=== PATIENT | female | born 1965 | race Caucasian/White ===

== ENCOUNTER 2023-07-30 12:02 | Outpatient (AMB) | payer OTHER, SELFPAY ==
--- NOTE | 2023-07-30 12:08 | A.OFFPC_ITS ---
Vital Signs 07/30/23 12:09 Height 5 ft Weight 171 lb 6 oz BMI 33.5 BP 124/68 Blood Pressure Location Rt brachial Position Sitting Respiration 14 Pulse 92 Pulse Source Pulse Oximeter Temp 97.5 F Temp Source Temporal Artery Scan Pulse Oximetry (%) 97 Oxygen Delivery Method Room Air Intake Visit Reasons: ANNUAL PHYSICAL Nurse Licensed Practical Required: No Accompanied by: Self / Same As Patient Allergies No Known Allergies Allergy (Verified 07/30/23 12:29) Medication List - Last Reconciled 07/30/23 by TASH Gomez No Known Home Meds Tobacco use date assessed: 07/30/23 Dental Screening Dental Screen Date: 07/30/23 Did you have a dental visit in the last 12 months?: No Did you have a dental problem in the last 6 months where you did not have access to dental care?: No Was dental information given to patient?: Patient has dentist HPI HPI Comments History of Present Illness Details 58-year-old female with generalized anxi ety disorder, MDD, obesity, current everyday tobacco user, mild intermittent asthma , PVD, varicose veins Specialists Podiatry Health maintenance Colonoscopy reports UTD Mammogram reports UTD Pap smear reports up-to-date DEXA reports up-to-date Vaccines - reports UTD done at [facility] Here today for CPE , very limited records available to me today. MDD/STEFFANY + sx. Not active in counseling. Has had lots of life circumstances. Interested in counseling. Would like medications to help. Has never been on meds. Mild intermittent asthma - needs inhaler, using DELILAH in the past with + effect. [facility] Medical History (Updated 07/30/23 @ 15:24 by TASH Gomez) Obesity Dermatitis due to allergic reaction to food Mixed anxiety and depressive disorder Right sciatic nerve pain Bone spur of foot Bursitis of both hips No pertinent past medical history Surgical History No pertinent past surgical history Family History Mother Diabetes Father Emphysema/COPD Diabetes Social History Household Members: None Both parents involved: No Caregiver staying overnight: No Housing: House Are you a primary respiratory care technician to a significant other at home: No Do you presently have visiting nurse or other home services: No 75 years or older and lives alone: No Alcohol intake: current Alcohol intake frequency: holidays/special occasions only Patient Tobacco Use Status: Current everyday Tobacco user Tobacco use type: Cigarette Cigarette Packs Per Day: 0.20 Cigarettes Per Day: 5 Years Smoked: 20 e-Cigarette/Vaping Use: Former Use Second Hand Smoke Exposure: Yes service: No Current occupational status: employed Current occupation: [employer] Cognitive needs: No Hearing needs: No Vision needs: No Questionnaire PHQ-9 Over the last 2 weeks, how often have you been bothered by any of the following problems? 1. Little interest or pleasure in doing things: more than half the days 2. Feeling down, depressed, or hopeless: more than half the days 3. Trouble falling or staying asleep, or sleeping too much: more than half the days 4. Feeling tired or having little energy: more than half the days 5. Poor appetite or overeating: more than half the days 6. Feeling bad about yourself - or that you are a failure or have let yourself or your family down: more than half the days 7. Trouble concentrating on things, such as reading the newspaper or watching television: more than half the days 8. Moving or speaking so slowly that other people could have noticed. Or the opposite - being so fidgety or restless that you have been moving around a lot more than usual: more than half the days 9. Thoughts that you would be better off or of hurting yourself in some way: more than half the days Total score: 18 Depression Screening Interpretation: Positive Depression Screening Follow-up: Existing condition, New Medication prescribed and Community Mental Health Worker F/U Depression Screening Done: Yes 36728 - PHQ-9 Billing: Yes Source: Developed by Drs. Gustavo Fischer, Gretel Salas, Solo Hurtado and colleagues, with an educational rob from [employer]. Thrive Questionnaire Date Thrive assessed: 07/30/23 I am a: Patient What is your living situation today?: I have a place to live, but I am worried about losing it in the future Within the past 12 months, did the food you bought not last and you didn't have the money to get more?: Never true Within the past 12 months, did you worry whether your food would run out before you got money to buy more?: Never true Do you have trouble paying for medicines?: No Do you have trouble getting transportation to medical appointments?: No Do you have trouble paying your heating and electricity bill?: No Do you have trouble taking care of your child, family member or friend?: No Do you have trouble with day-to-day activities such as bathing, preparing meals, shopping, managing finances, etc.?: Yes Are you currently unemployed and looking for a job?: No Are you interested in more education?: No Please select the resources that you would like help with: Housing/Group Home and Daily support Currently or been in a relationship where the following occur: no concerns reported THRIVE Score: 1 AUDIT C Alcohol Use Questionnaire (AUDIT-C) 1. How often do you have a drink containing alcohol?: Monthly or less 2. How many drinks containing alcohol do you have on a typical day when you are drinking?: 1 or 2 3. How often do you have six or more drinks on one occasion?: Never Total Score: 1 Score Reviewed/Action Taken: Yes STEFFANY-7 AMB Questionnaire STEFFANY-7 Date STEFFANY - 7 assessed: 07/30/23 Feeling nervous, anxious, or on edge: 2 = More than half the days Not being able to stop or control worryin = More than half the days Worrying too much about different things: 2 = More than half the days Trouble relaxin = Several days Being so restless that it is hard to sit still: 0 = Not at all Becoming easily annoyed or irritable: 1 = Several days Feeling afraid as if something awful might happen: 2 = More than half the days Total STEFFANY-7 score (0-4 normal; 5-9 mild; 10-14 moderate; 15-21 severe): 10 Source: Developed by Drs. Gustavo Fischer, Gretel Salas, Solo Hurtado and colleagues, with an educational rob from [employer] STEFFANY-7 Assessment Billing STEFFANY-7 Assessment Tool: STEFFANY-7 Assessment 30025 ACT Questionnaire In the past 4 weeks, how much of the time did your asthma keep you from getting as much done at work, school or at home?: None of the time During the past 4 weeks, how often have you had shortness of breath?: 1-2 times a week During the past 4 weeks, how often did your asthma symptoms wake you up at night or earlier than usual in the morning?: Not at all During the past 4 weeks, how often have you had to use your rescue inhaler or nebulizer medication?: 2-3 times a week How would you rate your asthma control during the past 4 weeks?: Well controlled ACT Interpretation: Negative Score: 21 Review of Systems Const Details: Constitutional: Denies fever. Skin: Denies rash. Eye: Denies eye pain. ENMT: Denies sore throat and nasal congestion. Respiratory: Denies shortness of breath and cough. Gastrointestinal: Denies nausea, vomiting or abdominal pain. Cardiovascular: Denies chest pain and syncope. Genitourinary: Denies dysuria. Musculoskeletal: Denies back pain and extremity pain. Neurologic: Denies headaches, confusion, and weakness. Psychiatric: Denies suicidal thoughts and substance abuse. Allergy/ Immunologic: Denies impaired immunity. Physical exam (Primary Care) Vital Signs: Last Vital Signs Temp 97.5 F 07/30/23 12:09 Pulse 92 07/30/23 12:09 Resp 14 07/30/23 12:09 BP 124/68 07/30/23 12:09 Pulse Ox 97 07/30/23 12:09 Oxygen Delivery Method Room Air 07/30/23 12:09 BMI result Body Mass Index 33.5 BMI Assessment/Plan discussion: High BMI High, discussed plan: lifestyle Tobacco/Smoking Status: Tobacco use Status Tobacco use date assessed 07/30/23 07/30/23 12:19 Patient Tobacco Use Status Current everyday Tobacco 07/30/23 12:19 Tobacco use type Cigarette 07/30/23 12:19 e-Cigarette/Vaping Use Former Use 07/30/23 12:19 Are you ready to quit: No Tobacco cessation counseling provided: Yes Items discussed: Other Relapse Prevention: discussed the importance of a supportive environment, discussed extending NRT, discussed negative mood or depression after quitting, weight gain after smoking is common and discussed dietary, exercise and/or lifestyle changes Number of minutes spent counselin CPT code: 77413 - 4-10 Minutes PHQ-9: PHQ-9 Score PHQ-9: Total score 18 07/30/23 12:26 Depression Screening Interpretation: Positive Depression Screening Follow-up: Existing condition, New Medication prescribed and Community Mental Health Worker F/U Thrive Assessment: Date of Thrive Assessment Date Thrive assessed 07/30/23 07/30/23 12:19 Currently or been in a relationship where the following occur: no concerns reported Advance Care Planning discussion: Exists, not on file Date of discussion: 07/30/23 Who was present: Self Forms completed: Health Care Proxy and MOLST Time spent: 1-15 minutes, not on file Actual minutes spent: 2 Const Other: General: Well developed, well nourished, in no acute distress. Appears stated age. Head: Normocephalic, atraumatic. Eyes: Pupils are equal, round and reactive to light and accommodation. Conjunctivae are clear. Vision grossly normal. Ears: TMs clear AU, EACS WNL Nose: Patent, without discharge. Mouth: There are no ulcers or lesions noted. No inflammation, no post nasal drip, no plaques nor exudates. Neck: Supple, no adenopathy or thyromegaly. Lungs: Inspiratory expiratory wheezes throughout Heart: Regular rate and rhythm. No murmurs, click, rubs or gallops are noted. Abdomen: Bowel sounds present in all quadrants. The abdomen is soft, nontender, with no masses or organomegaly noted. No hernias are noted. Musculoskeletal: Joints are nontender, without swelling, redness, or effusions. Range of motion is observed to be normal. Pulses: Peripheral pulses are equal and palpable bilaterally. Extremities: Hairless, skin intact, varicose veins bilateral lower extremities Neurologic: Gait and station normal. Cranial Nerves 2-12 intact. Motor strength grossly symmetrical and intact. No sensory loss. Balance normal. Skin: No rashes, ulcers, or lesions noted. Turgor is good. Skin color is good. Hair and nails are without abnormalities. Psych: Crying during exam when talking about her past. Future oriented. Conversant and cooperative, pleasant Assessment and Plan Assessment & Plan (1) Encounter for general adult medical examination with abnormal findings: Code(s): Z00.01 - Encounter for general adult medical examination with abnormal findings (2) MDD (major depressive disorder), recurrent episode: Comment: Start on Paxil 20 mg daily. Refer to counseling. Code(s): F33.9 - Major depressive disorder, recurrent, unspecified Qualifiers: Major depression episode severity: moderate Qualified Code(s): F33.1 - Major depressive disorder, recurrent, moderate (3) STEFFANY (generalized anxiety disorder): Comment: See MDD care plan Code(s): F41.1 - Generalized anxiety disorder (4) BMI 33.0-33.9,adult: Comment: Lifestyle modifications encouraged. Code(s): Z68.33 - Body mass index [BMI] 33.0-33.9, adult (5) Mild intermittent asthma in adult without complication: Comment: Start p.r.n. Delilah use. Code(s): J45.20 - Mild intermittent asthma, uncomplicated (6) PTSD (post-traumatic stress disorder): Comment: See MDD care plan Code(s): F43.10 - Post-traumatic stress disorder, unspecified (7) Varicose veins of both lower extremities: Comment: Skin intact. Follow up by vascular in the past. Reports that she had had the vein treatment on bilateral lower extremities and they have returned. At this time she has not complaining of any pain. Symptomatic care only at this time. Code(s): I83.93 - Asymptomatic varicose veins of bilateral lower extremities Qualifiers: Varicose vein complication: asymptomatic Qualified Code(s): I83.93 - As ymptomatic varicose veins of bilateral lower extremities (8) PVD (peripheral vascular disease): Comment: Based on physical exam. Not currently on a statin or aspirin. BP controlled without medications. Or review labs with her and discuss starting a statin if appropriate at next office visit. Smoking cessation also encouraged. Code(s): I73.9 - Peripheral vascular disease, unspecified (9) Tobacco dependence with current use: Comment: Cessation encouraged. Not ready to quit. Code(s): F17.200 - Nicotine dependence, unspecified, uncomplicated Plan This note is constructed using voice recognition software. While every effort has been made to ensure accuracy in plastic installer, still errors may have been included Sometimes, these errors may affect the content or meaning of the given sentence . An additional 20 minutes was spent dealing with abnormal findings on physical exam today in addition to the time needed for the wellness exam. This includes time before, after and patient facing. Orders: Orders LDL Cholesterol Direct Today Z00.01 - Encounter for general adult medical examination with abnormal findings Vitamin D 1,25 dihydroxy Today Z00.01 - Encounter for general adult medical examination with abnormal findings TSH reflex Free T4 Today Z00.01 - Encounter for general adult medical examination with abnormal findings Comprehensive Met. Panel Today Z00.01 - Encounter for general adult medical examination with abnormal findings Hemoglobin A1c Today Z00.01 - Encounter for general adult medical examination with abnormal findings Microalbumin, Random (w Creat) Today Z00.01 - Encounter for general adult medical examination with abnormal findings Referrals Nurse Navigator Referral Z13.9 - Encounter for screening, unspecified Counseling Referral F33.9 - Major depressive disorder, recurrent, unspecified, F41.1 - Generalized anxiety disorder Medications: New paroxetine HCl take 1/2 tab daily for 2 weeks then 1 tab daily 20 mg PO DAILY 30 tabs 1RF albuterol sulfate 90 mcg/actuation 2 puffs inhalation Q4-6H PRN 8.5 grams 0RF shortness of breath or wheezing 30 days Patient Instructions: Return to office in 6 weeks to follow up on Paxil as well as albuterol use and discuss your labs. Sooner as needed. Smoking Cessation How to Quit There are a lot of ways to quit smoking and many resources to help you. Family members, friends, and co-workers may be supportive or encouraging, but to be successful the desire and commitment to quit must be your own. Most people who have been able to successfully quit smoking made at least one unsuccessful attempt in the past. Try not to view past attempts to quit as failures, but rather as learning experiences. Stopping smoking or using smokeless tobacco is difficult, but anyone can do it. Know the symptoms to expect when you stop. Common symptoms include: ? An intense craving for nicotine ? Anxiety, tension, restlessness, frustration, or impatience ? Difficulty concentrating ? Drowsiness or trouble sleeping, as well as bad dreams and nightmares ? Drowsiness and trouble sleeping ? Headaches ? Increased appetite and weight gain ? Irritability or depression How severe your symptoms are depends on how long you smoked and how many cigarettes you smoked each day. Feel ready to quit? ? First and foremost, set a quit date and quit completely on that day. Before your quit date, you may begin reducing your cigarette use. But remember, there is no safe level of cigarette smoking. ? List the reasons why you want to quit. Include both short- and long-term benefits. ? Identify the times you are most likely to smoke. For example, do you tend to smoke when feeling stressed or down? When out at night with friends? While drinking coffee or alcohol? When bored? While driving? Right after a meal or sex? During a work break? While watching TV or playing cards? When you are with other smokers? ? Let all of your friends, family, and co-workers know of your plan to stop smoking and your quit date. Just being aware that they know what you're going through can be helpful, especially when you are grumpy. ? Get rid of all your cigarettes just before the quit date, and clean out anything that smells like smoke, such as clothes and furniture. Make a plan about what you will do instead of smoking at those times when you are most likely to smoke. ? Be as specific as possible. For example, drink tea instead of coffee -- tea may not trigger the desire for a cigarette. Or, take a walk when you feel stressed. ? Remove ashtrays and cigarettes from the car. Place pretzels or hard candies there instead. Pretend-smoke with a straw. ? Find activities that focus your hands and mind but are not taxing or fattening. Computer games, solitaire, knitting, sewing, and crossword puzzles may help. ? If you normally smoke after eating, find other ways to end a meal. Play a tape or CD, eat a piece of fruit, get up and make a phone call, or take a walk (a good distraction that also jaffe calories). Make other changes in your lifestyle. ? Change your daily schedule and habits. Eat at different times or eat several small meals instead of three large ones. Sit in a different chair or even a different room. ? Satisfy your oral habits by eating celery or other low-calorie snack, chewing sugarless gum, or sucking on a cinnamon stick. ? Go to public places and restaurants where smoking is prohibited or restricted. ? Eat regular meals and don't eat too much candy or sweet things. ? Get more exercise. Take walks or ride a bike. Exercise helps relieve the urge to smoke. Set short-term quitting goals and reward yourself when you meet them. ? Every day, put the money you normally spend on cigarettes in a jar. Then buy something pleasurable after a period of time. ? Try not to think about all the days ahead you will need to avoid smoking. Take it one day at a time. ? Even one puff or one cigarette will make your desire for more cigarettes even stronger. However, it is normal to make mistakes. So even if you have one cigarette, you don't need to take the next one. Other tips to help you quit smoking and stick to it: ? Enroll in a smoking cessation program (hospitals, health departments, community centers, and work sites often offer programs). Learn about self-hypnosis or other techniques. ? Ask your health care provider about prescription medications that are safe and appropriate for you. ? Find out about nicotine patches, gum, and sprays. The [place] [employer]'s web site -- www.cancer.org -- is an excellent resource for smokers who are trying to quit, and the [employer] [place] [employer] can help some smokers kick the habit. Above all, don't get discouraged if you aren't able to quit smoking the first time. Nicotine addiction is a hard habit to break. Try something different next time. Develop new strategies, and try again. Many people take several attempts to finally kick the habit. Health screenings for women You should visit your health care provider from time to time, even if you are healthy. The purpose of these visits is to: Screen for medical issues Assess your risk for future medical problems Encourage a healthy lifestyle Update vaccinations and other preventive care services Help you get to know your provider in case of an illness Information Even if you feel fine, you should still see your provider for regular checkups. These visits can help you avoid problems in the future. For example, the only way to find out if you have high blood pressure is to have it checked regularly. High blood sugar and high cholesterol levels also may not have any symptoms in the early stages. A simple blood test can check for these conditions. There are specific times when you should see your provider or receive specific health screenings. The [place] Preventive Services Task Force publishes a list of recommended screenings. Below are screening guidelines for women ages 18 to 39. BLOOD PRESSURE SCREENING Your blood pressure should be checked at least once every 3 to 5 years if: Your blood pressure is in the normal range (top number less than 120 mm Hg and bottom number less than 80 mm Hg) You don't have risk factors for high blood pressure Ask your provider if you need your blood pressure checked more often if: The top number is 120 to 129 mm Hg or the bottom number is 70 to 79 mm Hg You have diabetes, heart disease, kidney problems, are overweight, or have certain other health conditions You have a first-degree relative with high blood pressure You are Black You had high blood pressure during a If the top number is 130 mm Hg or greater or the bottom number is 80 mm Hg or greater, this is considered stage 1 hypertension. Schedule an appointment with your provider to learn how you can reduce your blood pressure. Watch for blood pressure screenings in your area. Ask your provider if you can stop in to have your blood pressure checked. BREAST CANCER SCREENING Experts do not agree about the benefits of breast self-exams in finding breast cancer or saving lives. Talk to your provider about what is best for you. A screening mammogram is not recommended for most women under age 40. Your provider may discuss and recommend mammograms, MRI scans, or ultrasounds if you have an increased risk for breast cancer, such as: A mother or sister who had breast cancer at a young age (most often starting screening earlier than the age the close relative was diagnosed) You carry a high-risk genetic marker CERVICAL CANCER SCREENING Cervical cancer screening should start at age 21 years unless your provider advises otherwise. After the first test: Women ages 21 through 29 should have a Pap test every 3 years. Exoprts do not agree on whether HPV testing is recommended for this age group. Women ages 30 through 65 should be screened with either a Pap test every 3 years or the HPV test every 5 years or both tests every 5 years (called cotesting ). Women who have been treated for precancer (cervical dysplasia) should continue to have Pap tests for 20 years after treatment or until age 65, whichever is longer. If you have had your uterus and cervix removed (total hysterectomy), and you have not been diagnosed with cervical cancer or precancer (high grade cervical neoplasia), you do not need cervical cancer screening. CHOLESTEROL SCREENING Cholesterol screening should begin at: Age 45 for women with no known risk factors for coronary heart disease Age 20 for women with known risk factors for coronary heart disease Repeat cholesterol screening should take place: Every 5 years for women with normal cholesterol levels More often if changes occur in lifestyle (including weight gain and diet) More often if you have diabetes, heart disease, kidney problems, or certain other conditions DIABETES SCREENING You should be screened for diabetes starting at age 35 and then repeated every 3 years if you have no risk factors for diabetes. Screening may need to start earlier and be repeated more often if you have other risk factors for diabetes, such as: You have a first degree relative with diabetes. You are overweight or have obesity. You have high blood pressure, prediabetes, or a history of heart disease. Screening for diabetes should be done if you are planning to become and you are overweight and have other risk factors such as high blood pressure. DENTAL EXAM Go to the dentist once or twice every year for an exam and cleaning. Your dentist will evaluate if you need more frequent visits. EYE EXAM Have an eye exam every 5 to 10 years before age 40. If you have vision problems, have an eye exam every 2 years or more often if recommended by your provider. You should have an eye exam that includes an examination of your retina (back of your eye) at least every year if you have diabetes. IMMUNIZATIONS Commonly needed vaccines include: Flu shot: get one every year. COVID-19 vaccine: ask your provider what is best for you. Tetanus-diphtheria and acellular pertussis (Tdap) vaccine: have one at or after age 19 as one of your tetanus-diphtheria vaccines if you did not receive it as an adolescent. Tetanus-diphtheria: have a booster (or Tdap) every 10 years. Varicella vaccine: receive 2 doses if you never had chickenpox or the varicella vaccine. Hepatitis B vaccine: receive 2, 3, or 4 doses, depending on your exact circumstances. Measles, mumps, and rubella (MMR) vaccine: receive 1 to 2 doses if you are not already immune to MMR. Your provider can tell you if you are immune. Ask your provider about the human papillomavirus (HPV) vaccine if: You have not received the HPV vaccine in the past You have not completed the full vaccine series (you should catch up on this shot ) Ask your provider if you should receive other immunizations if you have certain health problems that increase your risk for some diseases such as pneumonia. INFECTIOUS DISEASE SCREENING Women who are sexually active should be screened for chlamydia and gonorrhea up until age 25. Women 25 years and older should be screened for chlamydia and gonorrhea if at high risk. Screening for hepatitis C: All adults ages 18 to 79 should get a one-time test for hepatitis C. people should be screened at every . Screening for human immunodeficiency virus (HIV): All people ages 15 to 65 should get a one-time test for HIV. Depending on your lifestyle and medical history, you may also need to be screened for infections such as syphilis and HIV, as well as other infections. PHYSICAL EXAM All adults should visit their provider from time to time, even if they are healthy. The purpose of these visits is to: Screen for disease Assess your risk of future medical problems Encourage a healthy lifestyle Update your vaccinations and other preventive care services Maintain a relationship with a provider in case of an illness Your height, weight, and BMI should be checked at every exam. During your exam, your provider may ask you about: Depression and anxiety Diet and exercise Alcohol and tobacco use Safety issues, such as using seat belts, smoke detectors, and intimate partner v iolence Your medicines and risk for interactions SKIN SELF-EXAM Your provider may check your skin for signs of skin cancer, especially if you're at high risk, such as if you: Have had skin cancer before Have close relatives with skin cancer Have a weakened immune system OTHER SCREENING Talk with your provider about colon cancer screening if you have a strong family history of colon cancer or polyps, or if you have had inflammatory bowel disease or polyps yourself. Routine bone density screening of women under 40 is not recommended. Crisis Hotlines Suicide prevention, domestic violence, and other crisis hotlines for youth, young adults, and their friends and families. [employer] Genius[employer]: The [employer] Safeline helps youth who have run away, are thinking about running away, or who already ran away but are ready to come home. Parents and guardians can also contact the hotline if they are worried about their child running away or if their child has already left home. The hotline is available 24 hours a day, seven days a week. Youth, parents, and guardians can also use the online chat feature on the [employer]'s website to ask for help and get support, [place] [address]. [facility] National Suicide Prevention Lifeline: The National Suicide Prevention Lifeline is a network of local crisis centers that are available 24/ to provide support for youth and adults who are in any kind of emotional crisis. In addition to the main hotline number listed above, there are several other numbers to call depending on your needs: Palauan Language: Deaf and Hard of Hearin1-966.884.4845 Veterans: Disaster Distress: Anyone can also use their online chat feature on their website. National Suicide Prevention Lifeline [facility] Helpline: The [facility] Helpline is available to anyone in [place] who is need of emotional support. Anyone can call or text the helpline to receive help from specially trained volunteers. [place] high school and college students can also get online support through the IMHear_ program. For high school students, volunteers ages 15-18 are available Friday- from 6-9PM. For college students, IMHear_ is available Friday-Friday from 5-9PM. The Aftab Project - The Aftab Project is a 23/09 crisis intervention and suicide prevention hotline for LGBTQ youth. Youth can also text Aftab to for support, or use the online chat feature on the [employer] Project's website. [employer] is available Friday-Friday between 3-10PM. [employer]Chat is available seven days a week between 3-10PM. SafeLink: SafeLink is for anyone who is being affected by domestic violence or dating violence. Volunteers at SafeLink speak Citizen Of [place] and Palau[place], and [employer] also has a service that can provide translation in more than 130 languages. TTY: Coding Level of Care Code Est Pt Level 3 (56410) Est Pt Prev Care 40-64y(33356) Diagnoses Encounter for general adult medical examination with abnormal findings Z00.01 Moderate episode of recurrent major depressive disorder F33.1 Major depression episode severity: moderate STEFFANY (generalized anxiety disorder) F41.1 BMI 33.0-33.9,adult Z68.33 Mild intermittent asthma in adult without complication J45.20 PTSD (post-traumatic stress disorder) F43.10 Asymptomatic varicose veins of both lower extremities I83.93 Varicose vein complication: asymptomatic PVD (peripheral vascular disease) I73.9 Tobacco dependence with current use F17.200 Additional Codes STEFFANY-7 Assessment Billing - STEFFANY-7 Assessment Tool: STEFFANY-7 Assessment 12710 ([id number]) Vital Signs *Quality* - CPT code: 07034 - 4-10 Minutes ([id number]) Vital Signs *Quality* - Advance Care Planning discussion: Exists, not on file ([id number]) Vital Signs *Quality* - Time spent: 1-15 minutes, not on file ([id number])
[2023-07-30 12:09] VITALS: BP 124/68; PULSE 92; RESP 14; TEMP 36.4; O2SAT 97; BMI 33.5
== END 2023-07-30 12:56 | disposition home or self-care (01) ==
PROVIDERS: PCP Nurse Practitioner Family; Visit Provider Nurse Practitioner Family
DX: Z00.01 Encounter for general adult medical examination with abnormal findings (principal); F33.1 Major depressive disorder, recurrent, moderate; F41.1 Generalized anxiety disorder; Z68.33 Body mass index [BMI] 33.0-33.9, adult; J45.20 Mild intermittent asthma, uncomplicated; F43.10 Post-traumatic stress disorder, unspecified; I83.93 Asymptomatic varicose veins of bilateral lower extremities; I73.9 Peripheral vascular disease, unspecified; F17.200 Nicotine dependence, unspecified, uncomplicated; Z00.00 Encounter for general adult medical examination without abnormal findings
CPT/HCPCS: 1124F; 96127; 99213; 99396

== ENCOUNTER 2023-07-30 12:55 | Outpatient (REF) | payer OTHER, SELFPAY ==
[2023-07-30 15:26] LABS: Estimated Average Glucose 117 mg/dL; Hemoglobin A1c % 5.7 % (<6.0)
[2023-07-30 15:39] LABS: Creatinine Urine 108.19 mg/dL
[2023-07-30 15:41] LABS: Alanine Aminotransferase 12 U/L (0-31); Albumin Level 4.1 g/dL (3.5-5.0); Alkaline Phosphatase 79 U/L (39-117); Anion Gap 13 (12-20); Aspartate Amino Transferase 12 U/L (5-31); Bilirubin Total 0.3 mg/dL (0.0-1.0); Blood Urea Nitrogen 17 mg/dL (9-16); Carbon Dioxide 24 mmol/L (22-29); Chloride 109 mmol/L (96-108); Estimated Glomerular Filt Rate > 60; Glucose Random 89 mg/dL (60-115); Potassium 4.1 mmol/L (3.3-5.1); Sodium 142 mmol/L (135-145); Total Protein 7.4 g/dL (6.5-8.0)
[2023-07-30 15:59] LABS: TSH reflex Free T4 8.87 uIU/mL (0.32-4.0)
[2023-07-30 16:55] LABS: Free T4 (Free Thyroxine) 0.81 ng/dL (0.71-1.85)
[2023-08-13 11:21] LABS: LDL Cholesterol Direct 120; Vit D (1,25-Dihydroxy) Total 63
[2023-08-13 11:22] LABS: VITAMIN D (1,25 OH) D3 63; Vitamin D (1,25 OH) D2 <8
== END 2023-07-30 12:56 | disposition home or self-care (01) ==
LOC: HO.WFDLDS 12:55
PROVIDERS: Visit Provider Nurse Practitioner Family
DX: Z00.01 Encounter for general adult medical examination with abnormal findings (principal)
CPT/HCPCS: 36415; 80053; 82043; 82570; 82652; 83036; 83721; 84439; 84443

== ENCOUNTER 2023-09-16 13:00 | Outpatient (AMB) | payer OTHER, SELFPAY ==
--- NOTE | 2023-09-16 13:04 | A.OFFPC_ITS ---
Vital Signs 09/16/23 13:12 Height 5 ft Weight 177 lb BMI 34.6 BP 128/64 Blood Pressure Location Lt brachial Position Sitting Pulse 105 H Pulse Source Pulse Oximeter Pulse Oximetry (%) 95 Oxygen Delivery Method Room Air Intake Visit Reasons: 6 week follow up Intake Note: Six week follow up. Patient hasn't started levothyroxine or paroxetine because she has a lot going on and wants to wait. Installer Technician Required: No Allergies No Known Allergies Allergy (Verified 09/16/23 13:26) Medication List - Last Reconciled 09/16/23 by Rina Casas, [facility]- albuterol sulfate 90 mcg/actuation 2 puffs inhalation Q4-6H PRN 30 days levothyroxine 50 mcg PO DAILY paroxetine HCl 20 mg PO DAILY Tobacco use date assessed: 07/30/23 Dental Screening Dental Screen Date: 07/30/23 HPI HPI Comments History of Present Illness Details 58-year-old female with generalized anxi ety disorder, MDD, obesity, current everyday tobacco user, mild intermittent asthma , PVD, varicose veins, hypothyroid Specialists Podiatry Counseling Health maintenance Colonoscopy reports UTD Mammogram reports UTD Pap smear reports up-to-date DEXA reports up-to-date Vaccines - reports UTD done at [facility] Labs from 07/30/2023 show normal electrolytes, normal renal function, hemoglobin A1c 5.7%, normal LFTs, normal urine microalbumin, TSH 8 normal FT4 vitamin-D normal , direct LDL 120 in setting of elevated TSH... no tx at this time for LDL started levo 50mcg, repeat labs August* Since last office visit, socially things have declined. Lost job; doing instacart to try to supplement was helping son detox from etoh ;has 6grown kids which she helps support. did not hear from counseling yet; will have NN stop in today to help house she was living in was sold and she has to be out next week Has been sleeping in car in the parking lot of emergency room as she feels safe there Denies SI/HI Not taking her paxil or her levothyroxine - states wants to wait until things are better to take her meds. Admits to being afraid to accept help as she does not want to be placed in inpatient psych has been using some grounding techniques with short lived + response Using DELILAH for asthma while trying to quit smoking Exam: Crying when talking about her struggles ins/exp wheeze throughout Plan Discussed at length today the need to take both medications, states she will start NN visit today to help above crisis info provided New Rx for pulmicort 1 puff bid to help wheezing, cont prn delilah RTO Sept for routine fu of the above, sooner as needed This note is constructed using voice recognition software. While every effort has been made to ensure accuracy in television analyzer, still errors may have been included Sometimes, these errors may affect the content or meaning of the given sentence . Total time spent caring for the patient today was 40 minutes. This includes time spent before the visit reviewing the chart, time spent during the visit, and time spent after the visit on documentation [facility] Medical History (Updated 09/16/23 @ 13:49 by TASH Gomez) Obesity Dermatitis due to allergic reaction to food Mixed anxiety and depressive disorder Right sciatic nerve pain Bone spur of foot Bursitis of both hips No pertinent past medical history Surgical History No pertinent past surgical history Family History Mother Diabetes Father Emphysema/COPD Diabetes Social History Household Members: None Both parents involved: No Caregiver staying overnight: No Housing: House Are you a primary critical care nurse practitioner to a significant other at home: No Do you presently have visiting nurse or other home services: No 75 years or older and lives alone: No Alcohol intake: current Alcohol intake frequency: holidays/special occasions only Patient Tobacco Use Status: Current everyday Tobacco user Tobacco use type: Cigarette Cigarette Packs Per Day: 0.20 Cigarettes Per Day: 5 Years Smoked: 20 e-Cigarette/Vaping Use: Former Use Second Hand Smoke Exposure: Yes service: No Current occupational status: employed Current occupation: [employer] Cognitive needs: No Hearing needs: No Vision needs: No Questionnaire PHQ-9 Over the last 2 weeks, how often have you been bothered by any of the following problems? 1. Little interest or pleasure in doing things: more than half the days 2. Feeling down, depressed, or hopeless: several days 3. Trouble falling or staying asleep, or sleeping too much: nearly every day 4. Feeling tired or having little energy: several days 5. Poor appetite or overeating: nearly every day 6. Feeling bad about yourself - or that you are a failure or have let yourself or your family down: nearly every day 7. Trouble concentrating on things, such as reading the newspaper or watching television: several days 8. Moving or speaking so slowly that other people could have noticed. Or the opposite - being so fidgety or restless that you have been moving around a lot more than usual: several days 9. Thoughts that you would be better off or of hurting yourself in some way: not at all (Refused to answer this quesiton.) Total score: 15 Depression Screening Interpretation: Positive Depression Screening Done: Yes 62087 - PHQ-9 Billing: Yes Source: Developed by Drs. Gustavo Fischer, Gretel Salas, Solo Hurtado and colleagues, with an educational rob from [employer]. Thrive Questionnaire Date Thrive assessed: 07/30/23 STEFFANY-7 AMB Questionnaire STEFFANY-7 Date STEFFANY - 7 assessed: 07/30/23 Source: Developed by Drs. Gustavo Fischer, Gretel Salas, Solo Hurtado and colleagues, with an educational rob from [employer]. Physical exam (Primary Care) Vital Signs: Last Vital Signs Pulse 105 H 09/16/23 13:12 BP 128/64 09/16/23 13:12 Pulse Ox 95 09/16/23 13:12 Oxygen Delivery Method Room Air 09/16/23 13:12 BMI result Body Mass Index 34.6 Tobacco/Smoking Status: Tobacco use Status Tobacco use date assessed 07/30/23 09/16/23 13:15 Patient Tobacco Use Status Current everyday Tobacco 09/16/23 13:15 Tobacco use type Cigarette 09/16/23 13:15 e-Cigarette/Vaping Use Former Use 09/16/23 13:15 PHQ-9: PHQ-9 Score PHQ-9: Total score 15 09/16/23 13:15 Depression Screening Interpretation: Positive Thrive Assessment: Date of Thrive Assessment Date Thrive assessed 07/30/23 09/16/23 13:15 Assessment and Plan Assessment & Plan (1) Hypothyroid: Comment: 07/2023 TSH >8 normal t4, start levo 50mcg Repeat labs will be needed... she did not start med yet Code(s): E03.9 - Hypothyroidism, unspecified (2) Tobacco dependence with current use: Comment: Cessation encouraged. Not ready to quit. Code(s): F17.200 - Nicotine dependence, unspecified, uncomplicated (3) PTSD (post-traumatic stress disorder): Comment: See MDD care plan Code(s): F43.10 - Post-traumatic stress disorder, unspecified (4) Mild intermittent asthma in adult without complication: Code(s): J45.20 - Mild intermittent asthma, uncomplicated (5) STEFFANY (generalized anxiety disorder): Comment: See MDD care plan Code(s): F41.1 - Generalized anxiety disorder (6) MDD (major depressive disorder), recurrent episode: Comment: Start on Paxil 20 mg daily. Refer to counseling. Code(s): F33.9 - Major depressive disorder, recurrent, unspecified Qualifiers: Major depression episode severity: moderate Qualified Code(s): F33.1 - Major depressive disorder, recurrent, moderate (7) Encounter for screening involving social determinants of health (SDoH): Code(s): Z13.9 - Encounter for screening, unspecified Medications: New budesonide 90 mcg/actuation (Pulmicort Flexhaler) 1 inh inhalation BID 1 ea 0RF Refilled levothyroxine 50 mcg PO DAILY 90 tabs 0RF paroxetine HCl take 1/2 tab daily for 2 weeks then 1 tab daily 20 mg PO DAILY 30 tabs 1RF albuterol sulfate 90 mcg/actuation 2 puffs inhalation Q4-6H 30 days PRN 8.5 grams 0RF shortness of breath or wheezing Coding Level of Care Code Est Pt Level 5 (87587) Diagnoses Hypothyroid E03.9 Tobacco dependence with current use F17.200 PTSD (post-traumatic stress disorder) F43.10 Mild intermittent asthma in adult without complication J45.20 STEFFANY (generalized anxiety disorder) F41.1 Moderate episode of recurrent major depressive disorder F33.1 Major depression episode severity: moderate Encounter for screening involving social determinants of health (SDoH) Z13.9
[2023-09-16 13:12] VITALS: BP 128/64; PULSE 105; O2SAT 95; BMI 34.6
== END 2023-09-16 14:07 | disposition home or self-care (01) ==
PROVIDERS: PCP Nurse Practitioner Family; Visit Provider Nurse Practitioner Family
DX: E03.9 Hypothyroidism, unspecified (principal); F33.1 Major depressive disorder, recurrent, moderate; F41.1 Generalized anxiety disorder; F17.200 Nicotine dependence, unspecified, uncomplicated; F43.10 Post-traumatic stress disorder, unspecified; J45.20 Mild intermittent asthma, uncomplicated
CPT/HCPCS: 99215

== ENCOUNTER 2024-03-22 12:23 | Outpatient (AMB) | payer OTHER, SELFPAY ==
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
[2024-03-22 12:29] VITALS: BP 124/72; PULSE 108; RESP 13; O2SAT 97; BMI 36.7
[2024-03-22 13:31] VITALS: PULSE 85
== END 2024-03-22 12:57 | disposition home or self-care (01) ==
PROVIDERS: PCP Nurse Practitioner Family; Visit Provider Nurse Practitioner Family
DX: E03.9 Hypothyroidism, unspecified (principal); F17.200 Nicotine dependence, unspecified, uncomplicated; I73.9 Peripheral vascular disease, unspecified; I83.93 Asymptomatic varicose veins of bilateral lower extremities; F43.10 Post-traumatic stress disorder, unspecified; J45.20 Mild intermittent asthma, uncomplicated; F41.1 Generalized anxiety disorder; F33.1 Major depressive disorder, recurrent, moderate; Z13.9 Encounter for screening, unspecified; M54.31 Sciatica, right side; E66.01 Morbid (severe) obesity due to excess calories; Z68.36 Body mass index [BMI] 36.0-36.9, adult; R73.03 Prediabetes

== ENCOUNTER → 2024-03-22 12:23 | Outpatient (BNVA) | payer OTHER, SELFPAY | PROVIDERS: PCP Nurse Practitioner Family; Visit Provider Nurse Practitioner Family | DX: E03.9 Hypothyroidism, unspecified (principal); I73.9 Peripheral vascular disease, unspecified; I83.93 Asymptomatic varicose veins of bilateral lower extremities; F43.10 Post-traumatic stress disorder, unspecified; F41.1 Generalized anxiety disorder; J45.20 Mild intermittent asthma, uncomplicated; F33.1 Major depressive disorder, recurrent, moderate; M54.31 Sciatica, right side; R73.03 Prediabetes; E66.01 Morbid (severe) obesity due to excess calories; Z68.36 Body mass index [BMI] 36.0-36.9, adult; F17.200 Nicotine dependence, unspecified, uncomplicated; Z71.3 Dietary counseling and surveillance; Z71.6 Tobacco abuse counseling | CPT/HCPCS: 83036; 96127; 96160; 99212 ==

== ENCOUNTER 2024-06-08 10:31 | Outpatient (AMB) | payer OTHER, SELFPAY ==
--- NOTE | 2024-06-08 10:49 | MHC.PC.OV ---
Vital Signs 06/08/24 10:53 06/08/24 11:16 Height 5 ft Weight 187 lb 4 oz BMI 36.6 BP 134/74 Blood Pressure Location Lt brachial Position Sitting Respiration 13 Pulse 102 H 82 Pulse Source Pulse Oximeter Auscultation Temp 97.2 F Temp Source Oral Pulse Oximetry (%) 96 Oxygen Delivery Method Room Air Intake Visit Reasons: Follow up Asthma Intake Note: Follow up Physical Therapy Coordinator Required: No Allergies No Known Allergies Allergy (Verified 06/08/24 11:06) Medication List - Last Reconciled 06/08/24 by Rina Casas, BUSINESS ANALYST [employer]- albuterol sulfate 90 mcg/actuation 2 puffs inhalation Q4-6H PRN 30 days diclofenac potassium 25 mg PO BID PRN levothyroxine 88 mcg PO DAILY metformin ER 500 mg PO QPM mometasone 100 mcg/actuation (Asmanex HFA) 1 inh inhalation BID paroxetine HCl 20 mg PO DAILY Tobacco use date assessed: 06/08/24 Dental Screening Dental Screen Date: 06/08/24 Did you have a dental visit in the last 12 months?: Yes Did you have a dental problem in the last 6 months where you did not have access to dental care?: No Was dental information given to patient?: Patient has dentist HPI HPI Comments History of Present Illness Details 59-year-old female with generalized anxiety disorder, MDD, obesity, current everyday tobacco user, mild intermittent asthma , PVD, varicose veins, hypothyroid, IFG, Specialists Podiatry Health maintenance Colonoscopy reports UTD Mammogram reports UTD Pap smear reports up-to-date DEXA reports up-to-date Vaccines - reports UTD done at [facility] Here today for close iterim fu STEFFANY, MDD: taking Paxil now and then. Overwhelmed and forgets. Caregiver role strain. Taking care of Mom w/ dementia States has not heard about counseling yet IFG: Did not start Metformin. Forgot to take Asthma: Is taking Asmanex, states as directed. PRN DELILAH. Cont to smoke; has reduced. Hypothyroid: Taking now and then. Do for repeat labs. Ordered but did not get done. BMI > 36 Physical Exam General: Well developed, well nourished, in no acute distress. Appears stated age. Head: Normocephalic, atraumatic. Neck: Supple, no adenopathy or thyromegaly. Lungs: Clear but dim throughout Heart: Regular rate and rhythm. No murmurs, click, rubs or gallops are noted. Pulses: Peripheral pulses are equal and palpable bilaterally. Extremities: Hairless, skin intact, varicose veins bilateral lower extremities Neuro: MOORE x 4, normal strength, tone. Psych: Future oriented. Conversant and cooperative, pleasant Results - Labs: Hemoglobin A1c, 6.1% - Previous A1c: 5.7% Labs from 07/30/2023 show normal electrolytes, normal renal function, hemoglobin A1c 5.7%, normal LFTs, normal urine microalbumin, TSH 8, normal FT4, vitamin-D normal , direct LDL 120 in setting of elevated TSH... Plan - Encouraged regular use of paroxetine for management of major depressive disorder. - Brief intervention with NN to help est care w counselor - Smoking cessation - Start metformin therapy to manage prediabetes. - Cont Asmanex to improve control over asthma symptoms. - Update lab work today - FU by phone in 1 week w/ lab results Patient was informed and verbally consented to the use of an ambient scribe for clinic note documentation during this visit. Total time spent caring for the patient today was 31 minutes. This includes time spent before the visit reviewing the chart, time spent during the visit, and time spent after the visit on documentation, reviewing laboratory results, diagnostic imaging, medications, performing a medically necessary evaluation, counseling on diagnoses, care coordination, ordering appropriate tests, ordering appropriate medications, review of tests performed by other providers, reporting test results with the patient, communication with other healthcare providers. [facility] Medical History (Updated 03/22/24 @ 13:31 by SUKHWINDER Gomez-SEBASTIAN) Bone spur of foot Bursitis of both hips Dermatitis due to allergic reaction to food Mixed anxiety and depressive disorder No pertinent past medical history Obesity Right sciatic nerve pain Surgical History No pertinent past surgical history Family History Mother Diabetes Father Emphysema/COPD Diabetes Social History Household Members: None Both parents involved: No Caregiver staying overnight: No Housing: House Are you a primary family member caretaker to a significant other at home: No Do you presently have visiting nurse or other home services: No 75 years or older and lives alone: No Alcohol intake: current Alcohol intake frequency: holidays/special occasions only Patient Tobacco Use Status: Current everyday Tobacco user Tobacco use type: Cigarette Cigarette Packs Per Day: 0.20 Cigarettes Per Day: 5 Years Smoked: 20 e-Cigarette/Vaping Use: Former Use Second Hand Smoke Exposure: Yes service: No Current occupational status: employed Current occupation: [employer] Cognitive needs: No Hearing needs: No Vision needs: No Questionnaire PHQ-9 Over the last 2 weeks, how often have you been bothered by any of the following problems? 1. Little interest or pleasure in doing things: not at all 2. Feeling down, depressed, or hopeless: not at all 3. Trouble falling or staying asleep, or sleeping too much: not at all 4. Feeling tired or having little energy: not at all 5. Poor appetite or overeating: not at all 6. Feeling bad about yourself - or that you are a failure or have let yourself or your family down: not at all 7. Trouble concentrating on things, such as reading the newspaper or watching television: not at all 8. Moving or speaking so slowly that other people could have noticed. Or the opposite - being so fidgety or restless that you have been moving around a lot more than usual: not at all 9. Thoughts that you would be better off or of hurting yourself in some way: not at all Total score: 0 Depression Screening Interpretation: Negative Depression Screening Done: Yes 52503 - PHQ-9 Billing: Yes Source: Developed by Drs. Gustavo Fischer, Gretel Salas, Solo Hurtado and colleagues, with an educational rob from [employer]. Thrive Questionnaire Date Thrive assessed: 06/08/24 I am a: Patient What is your living situation today?: I have a steady place to live Within the past 12 months, did the food you bought not last and you didn't have the money to get more?: Never true Within the past 12 months, did you worry whether your food would run out before you got money to buy more?: Never true Do you have trouble paying for medicines?: No Do you have trouble getting transportation to medical appointments?: No Do you have trouble paying your heating and electricity bill?: No Do you have trouble taking care of your child, family member or friend?: No Do you have trouble with day-to-day activities such as bathing, preparing meals, shopping, managing finances, etc.?: No Are you currently unemployed and looking for a job?: No Are you interested in more education?: No THRIVE Score: 0 STEFFANY-7 AMB Questionnaire STEFFANY-7 Date STEFFANY - 7 assessed: 06/08/24 Feeling nervous, anxious, or on edge: 0 = Not at all Not being able to stop or control worryin = Not at all Worrying too much about different things: 0 = Not at all Trouble relaxin = Not at all Being so restless that it is hard to sit still: 0 = Not at all Becoming easily annoyed or irritable: 0 = Not at all Feeling afraid as if something awful might happen: 0 = Not at all Total STEFFANY-7 score (0-4 normal; 5-9 mild; 10-14 moderate; 15-21 severe): 0 Source: Developed by Drs. Gustavo Fischer, Gretel Salas, Solo Hurtado and colleagues, with an educational rob from [employer]. STEFFANY-7 Assessment Billing STEFFANY-7 Assessment Tool: STEFFANY-7 Assessment 12869 Physical exam (Primary Care) Vital Signs: Last Vital Signs Temp 97.2 F 06/08/24 10:53 Pulse 102 H 06/08/24 10:53 Resp 13 06/08/24 10:53 BP 134/74 06/08/24 10:53 Pulse Ox 96 06/08/24 10:53 Oxygen Delivery Method Room Air 06/08/24 10:53 BMI result Body Mass Index 36.6 Tobacco/Smoking Status: Tobacco use Status Tobacco use date assessed 06/08/24 06/08/24 10:53 Patient Tobacco Use Status Current everyday Tobacco 06/08/24 10:53 Tobacco use type Cigarette 06/08/24 10:53 e-Cigarette/Vaping Use Former Use 06/08/24 10:53 Are you ready to quit: No Tobacco cessation counseling provided: Yes Items discussed: Nicotine replacement, QuitWorks and Other Relapse Prevention: discussed the importance of a supportive environment, discussed extending NRT, discussed negative mood or depression after quitting, weight gain after smoking is common and discussed dietary, exercise and/or lifestyle changes Number of minutes spent counselin CPT code: 66059 - 4-10 Minutes PHQ-9: PHQ-9 Score PHQ-9: Total score 0 06/08/24 10:53 Depression Screening Interpretation: Negative Thrive Assessment: Date of Thrive Assessment Date Thrive assessed 06/08/24 06/08/24 10:53 Coding Level of Care Code Est Pt Level 4 (20799) Complex EM visit Add On G2211 Diagnoses STEFFANY (generalized anxiety disorder) F41.1 Acquired hypothyroidism E03.9 Hypothyroidism type: acquired Moderate episode of recurrent major depressive disorder F33.1 Major depression episode severity: moderate Mild intermittent asthma in adult without complication J45.20 Prediabetes R73.03 Tobacco dependence with current use F17.200 Severe obesity with body mass index (BMI) of 36.0 to 36.9 with serious comorbidity E66.01; Z68.36 BMI 36.0-36.9,adult Z68.36 Additional Codes STEFFANY-7 Assessment Billing - STEFFANY-7 Assessment Tool: STEFFANY-7 Assessment 37657 ([id number]) PHQ-9 - 35137 - PHQ-9 Billing: Yes ([id number]) Vital Signs *Quality* - CPT code: 07433 - 4-10 Minutes ([id number]) Assessment & Plan Assessment & Plan (1) STEFFANY (generalized anxiety disorder): Comment: See MDD care plan Code(s): F41.1 - Generalized anxiety disorder Category: Medical (2) Hypothyroid: Comment: 07/2023 TSH >8 normal t4, on levo 50mcg Repeat labs will be needed... Code(s): E03.9 - Hypothyroidism, unspecified Category: Medical Qualifiers: Hypothyroidism type: acquired Qualified Code(s): E03.9 - Hypothyroidism, unspecified (3) MDD (major depressive disorder), recurrent episode: Comment: reStart on Paxil 20 mg daily. Refer to counseling. Code(s): F33.9 - Major depressive disorder, recurrent, unspecified Category: Medical Qualifiers: Major depression episode severity: moderate Qualified Code(s): F33.1 - Major depressive disorder, recurrent, moderate (4) Mild intermittent asthma in adult without complication: Code(s): J45.20 - Mild intermittent asthma, uncomplicated Category: Medical (5) Prediabetes: Code(s): R73.03 - Prediabetes Category: Medical (6) Tobacco dependence with current use: Comment: Cessation encouraged. Not ready to quit. Code(s): F17.200 - Nicotine dependence, unspecified, uncomplicated Category: Medical (7) Severe obesity with body mass index (BMI) of 36.0 to 36.9 with serious comorbidity: Comment: with PVD and Prediabetes Code(s): E66.01 - Morbid (severe) obesity due to excess calories; Z68.36 - Body mass index [BMI] 36.0-36.9, adult Category: Medical (8) BMI 36.0-36.9,adult: Code(s): Z68.36 - Body mass index [BMI] 36.0-36.9, adult Category: Medical Plan .
[2024-06-08 10:53] VITALS: BP 134/74; PULSE 102; RESP 13; TEMP 36.2; O2SAT 96; BMI 36.6
[2024-06-08 11:16] VITALS: PULSE 82
== END 2024-06-08 11:28 | disposition home or self-care (01) ==
LOC: HO.HMCFM 10:31
PROVIDERS: PCP Nurse Practitioner Family; Visit Provider Nurse Practitioner Family
DX: J45.20 Mild intermittent asthma, uncomplicated (principal); F33.1 Major depressive disorder, recurrent, moderate; E66.01 Morbid (severe) obesity due to excess calories; Z68.36 Body mass index [BMI] 36.0-36.9, adult; F41.1 Generalized anxiety disorder; E03.9 Hypothyroidism, unspecified; R73.03 Prediabetes; F17.200 Nicotine dependence, unspecified, uncomplicated

== ENCOUNTER → 2024-06-08 10:31 | Outpatient (BNVA) | payer OTHER, SELFPAY | PROVIDERS: PCP Nurse Practitioner Family; Visit Provider Nurse Practitioner Family ==

== ENCOUNTER 2024-06-08 11:29 | Outpatient (REF) | payer OTHER, SELFPAY ==
[2024-06-08 14:52] LABS: TSH reflex Free T4 9.33 uIU/mL (0.32-4.0)
[2024-06-08 15:36] LABS: Free T4 (Free Thyroxine) 0.81 ng/dL (0.71-1.85)
== END 2024-06-08 11:30 | disposition home or self-care (01) ==
LOC: HO.WFDLDS 11:29
PROVIDERS: Visit Provider Nurse Practitioner Family
DX: F41.1 Generalized anxiety disorder (principal); E03.9 Hypothyroidism, unspecified; F33.1 Major depressive disorder, recurrent, moderate; J45.20 Mild intermittent asthma, uncomplicated; R73.03 Prediabetes; F17.200 Nicotine dependence, unspecified, uncomplicated; E66.01 Morbid (severe) obesity due to excess calories; Z68.36 Body mass index [BMI] 36.0-36.9, adult
CPT/HCPCS: 36415; 84439; 84443; 96127; 99212